=== PATIENT | female | born 1985 | race Caucasian/White ===

== ENCOUNTER 2018-11-13 01:27 | Emergency (ER) | payer OTHER ==
[~2018-11-13] VITALS: Ht 165.1 cm; Wt 90.7 kg
[~2018-11-13 01:27] MED LIST: AMOXICILLIN500 MG PO; AUGMENTIN 875 M1 TA1 PO; AUGMENTIN 875875 MG PO; CIPRO500 MG PO; CIPROFLOXACIN500 MG PO; CLINDAMYCIN150 MG PO; CORTISPORIN 1%-10 M1 OT; CORTISPORIN SUS10 ML OT; DARVOCET N 1001 TAB PO; FLONASE 0.05% 121 EA NAS; LEVOFLOXACIN500 MG PO; LOMOTIL 0.025 M1 TA1 PO; MEDROL DOSEPAK4 MG PO; NKHM; Nizoral 2%15 GM PO; PENICILLIN250 MG PO; PERCOCET 325 MG1 TA2 PO; PREDNICOT20 MG PO; PREDNISONE20 MG PO; PYRIDIUM200 MG PO; SUDAFED60 MG PO; TRAMADOL HCL50 MG PO; TRIMOX500 MG PO; VICO75300 PO; VICODIN 5/500 505 MG PO; VICODIN ES 7501 TAB PO; VICODIN1 TAB PO; VISTARIL50 MG PO; WYMOX500 MG PO; ZITHROMAX Z PA250 MG PO; ZITHROMAX250 MG PO; ZOFRAN ODT4 MG SL; ZYRTEC10 M1 PO
[2018-11-13 01:52] LABS: BILIRUBIN NEGATIVE (NEGATIVE); BLOOD 1+ (NEGATIVE); CLARITY CLEAR (CLEAR); COLOR YELLOW (YELLOW); GLUCOSE NEGATIVE (NEGATIVE); KETONE NEGATIVE (NEGATIVE); LEUKO ESTERASE NEGATIVE (NEGATIVE); NITRITE NEGATIVE (NEGATIVE); PH 6.5 (5.0-9.0); SPECIFIC GRAVITY 1.015 (1.005-1.030); UROBILINOGEN 0.2 E.U./dl (0.2-1.0)
[2018-11-13 02:02] LABS: EPITHELIAL CELLS 25-30
[2018-11-13 02:03] LABS: WBC 0-2 wbc/hpf (0-5)
[2018-11-13 02:07] LABS: BASO # 0.1 10*3/uL (0.0-0.1); BASO % 0.7 % (0.0-1.0); EOS # 0.2 10*3/uL (0.0-0.4); EOS % 1.8 % (1.0-4.0); HEMATOCRIT 38.8 % (37.0-47.0); HEMOGLOBIN 13.2 g/dl (12.0-16.0); LYMPH # 4.1 10*3/uL (1.3-4.4); MEAN CELL VOLUME 86.6 fl (81.0-99.0); MEAN CORPUSCULAR HGB 29.5 pg (27.0-31.0); MEAN PLATELET VOLUME 12.1 fl (9.6-12.3); MONO # 0.9 10*3/uL (0.1-1.0); MONO % 7.6 % (3.0-9.0); NEUT # 6.5 10*3/uL (2.3-7.9); NEUT % 54.7 % (47.0-73.0); PLATELET COUNT AUTOMATED 281 10*3/uL (130-400); RED BLOOD COUNT 4.48 10*6/uL (4.10-5.10); RED CELL DISTRI WIDTH 11.9 % (0-14.5); WHITE BLOOD COUNT 11.8 10*3/uL (4.8-10.8)
[2018-11-13 02:21] LABS: ALBUMIN 3.7 gm/dl (3.1-4.5); ALKALINE PHOSPHATASE 62 U/L (45-117); BUN 18 mg/dl (7-24); CHLORIDE 106 mmol/L (98-107); CREATININE 0.79 mg/dL (0.55-1.02); POTASSIUM 3.7 mmol/L (3.5-5.1); SGOT/AST 20 IU/L (3-35); SGPT/ALT 33 U/L (12-78); SODIUM 142 mmol/L (136-145); TOTAL PROTEIN 7.1 gm/dL (6.4-8.2)
[2018-11-13] MEDS ORDERED: AUGMENTIN 875875 MG PO (04:54)
[2018-12-17] MEDS ORDERED: PREPARATION H1 EAC1 R (15:33)
[2018-12-17] MEDS ORDERED: PEPCID20 MG PO (15:33)
== END 2018-11-13 04:57 | disposition home or self-care (01) ==
LOC: ED 01:27
PROVIDERS: Student in an Organized Health Care Education/Training Program
DX: K62.5 Hemorrhage of anus and rectum (principal); H66.91 Otitis media, unspecified, right ear; Z79.2 Long term (current) use of antibiotics

== ENCOUNTER 2018-12-05 07:38 | Emergency (ER) | payer OTHER ==
[2018-12-05] MEDS ORDERED: TYLENOL325 M1 PO (07:59)
[2018-12-05] MEDS ORDERED: NAPROSYN500 MG PO (07:59)
[2018-12-05] MEDS ORDERED: PENICILLIN-VK500 MG PO (07:59)
[2018-12-05] MEDS ORDERED: CHANTIX1 M1 PO (07:59)
[2018-12-05] MEDS ORDERED: DIFLUCAN150 MG PO (07:59)
[2018-12-17] MEDS ORDERED: PREPARATION H1 EAC1 R (15:33)
[2018-12-17] MEDS ORDERED: PEPCID20 MG PO (15:33)
== END 2018-12-05 08:04 | disposition home or self-care (01) ==
LOC: ED 07:38
DX: K02.9 Dental caries, unspecified (principal); K00.3 Mottled teeth; F17.210 Nicotine dependence, cigarettes, uncomplicated

== ENCOUNTER 2019-01-29 04:39 | Emergency (ER) | payer OTHER ==
[~2019-01-29] VITALS: Ht 165.1 cm; Wt 97.1 kg
--- NOTE | ~2019-01-29 | EKG ---
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
[~2019-01-29 04:39] MED LIST changes: +CHANTIX1 M1 PO; +DIFLUCAN150 MG PO; +NAPROSYN500 MG PO; +PENICILLIN-VK500 MG PO; +PEPCID20 MG PO; +PREPARATION H1 EAC1 R; +TYLENOL325 M1 PO
[2019-01-29 05:13] LABS: BILIRUBIN NEGATIVE (NEGATIVE); BLOOD TRACE-INTACT (NEGATIVE); CLARITY CLEAR (CLEAR); COLOR YELLOW (YELLOW); GLUCOSE NEGATIVE (NEGATIVE); KETONE NEGATIVE (NEGATIVE); LEUKO ESTERASE NEGATIVE (NEGATIVE); NITRITE NEGATIVE (NEGATIVE); PH 5.5 (5.0-9.0); SPECIFIC GRAVITY >= 1.030 (1.005-1.030)
[2019-01-29 05:22] LABS: BACTERIA TRACE; MUCOUS TRACE; RBC 0-2 rbc/hpf (0-2); WBC 0-2 wbc/hpf (0-5)
[2019-01-29 05:46] LABS: BASO # 0.1 10*3/uL (0.0-0.1); BASO % 0.8 % (0.0-1.0); EOS # 0.1 10*3/uL (0.0-0.4); EOS % 1.6 % (1.0-4.0); HEMOGLOBIN 13.4 g/dl (12.0-16.0); LYMPH # 1.8 10*3/uL (1.3-4.4); LYMPH % 20.5 % (27.0-41.0); MEAN CELL VOLUME 85.8 fl (81.0-99.0); MEAN CORPUSCULAR HGB 30.2 pg (27.0-31.0); MEAN CORPUSCULAR HGB CONC 35.3 g/dl (33.0-37.0); MEAN PLATELET VOLUME 12.9 fl (9.6-12.3); MONO # 0.8 10*3/uL (0.1-1.0); NEUT % 67.9 % (47.0-73.0); PLATELET COUNT AUTOMATED 218 10*3/uL (130-400); RED BLOOD COUNT 4.43 10*6/uL (4.10-5.10); RED CELL DISTRI WIDTH 11.9 % (0-14.5); WHITE BLOOD COUNT 8.9 10*3/uL (4.8-10.8)
[2019-01-29 06:14] LABS: ALBUMIN 3.6 gm/dl (3.1-4.5); ALKALINE PHOSPHATASE 70 U/L (45-117); BUN 17 mg/dl (7-24); CHLORIDE 108 mmol/L (98-107); CREATININE 0.82 mg/dL (0.55-1.02); LIPASE 270 U/L (73-393); POTASSIUM 3.3 mmol/L (3.5-5.1); SGOT/AST 10 IU/L (3-35); SGPT/ALT 25 U/L (12-78); SODIUM 142 mmol/L (136-145); TOTAL PROTEIN 7.4 gm/dL (6.4-8.2)
[2019-01-29] MEDS ORDERED: DICYCLOMINE HYD10 MG PO (07:05)
== END 2019-01-29 07:34 | disposition home or self-care (01) ==
LOC: ED 04:39
PROVIDERS: Emergency Medicine Emergency Medical Services
DX: R10.9 Unspecified abdominal pain (principal); R11.0 Nausea; R19.7 Diarrhea, unspecified; R09.81 Nasal congestion; K21.9 Gastro-esophageal reflux disease without esophagitis

== ENCOUNTER 2019-02-06 19:20 | Emergency (ER) | payer OTHER ==
[~2019-02-06 19:20] MED LIST changes: +DICYCLOMINE HYD10 MG PO
[2019-02-06] MEDS ORDERED: AMOXICILLIN500 M3 PO (19:34)
== END 2019-02-06 20:24 | disposition home or self-care (01) ==
LOC: ED 19:20
DX: L29.9 Pruritus, unspecified (principal); Z79.2 Long term (current) use of antibiotics